=== PATIENT | male | born 1985 | race American Indian/Alaskan Native ===

== ENCOUNTER 2021-11-28 01:57 | Emergency (ER) | payer SELFPAY ==
--- NOTE | 2021-11-28 02:58 | XRay Report ---
Left foot, 3 views HISTORY: Injury COMPARISON: None FINDINGS: No acute fracture or malalignment. Mild first MTP and TMT osteoarthritis. Lisfranc interval is preser ivanna. No focal soft tissue abnormality. IMPRESSION: No acute process. Signer Name: Miki Diaz MD Signed: 11/28/2021 2:54 AM Workstation Name: [id number]
--- NOTE | 2021-11-28 03:27 | Emergency Department Report ---
ED Lower Extremity HPI - General Chief Complaint: Extremity Injury, Lower Stated Complaint: LT FOOT INJURY Source: patient Mode of arrival: Ambulatory Limitations: No Limitations - History of Present Illness Initial Comments: Patient is a 36-year-old -[place] male with past medical history of zip-jiwlhft-nkbntkrak diabetes who presents to the ED with complaint of acute onset persistent dorsal left foot pain after multiple wooden shelves dropped onto his left foot while at work about 2 hours ago. Patient states that the pain is worse with any movement and that any active range of motion makes the pain worse. Patient denies fall, dizziness, syncope, numbness and tingling or weakness of left leg, back pain, head or neck injuries, nausea and vomiting or loss of consciousness. MD Complaint: foot injury (left foot pain), other (dorsal left foot pain) -: Sudden, hour(s) (2) Injury: Foot: Left (Pain) Type of Injury: blunt Place: work Severity: severe Severity scale (0 -10): 7 Improves With: nothing Worsens With: weight bearing, movement, palpation Context: direct blow Associated Symptoms: able to partially bear weight - Related Data Previous Rx's Medication Instructions Recorded Last Taken Type Ibuprofen [Motrin] 800 mg PO Q8HR PRN #30 tablet 11/28/21 Unknown Rx Allergies Allergy/AdvReac Type Severity Reaction Status Date / Time No Known Allergies Allergy Unverified 11/28/21 02:20 ED Review of Systems ROS: Stated complaint: LT FOOT INJURY Other details as noted in HPI Constitutional: denies: chills, fever Eyes: denies: eye pain, eye discharge, vision change ENT: denies: ear pain, throat pain Respiratory: denies: cough, shortness of breath, wheezing Cardiovascular: denies: chest pain, palpitations Endocrine: no symptoms reported Gastrointestinal: denies: abdominal pain, nausea, diarrhea Genitourinary: denies: urgency, dysuria Musculoskeletal: arthralgia (Left foot pain). denies: back pain, joint swelling Skin: denies: rash, lesions Neurological: denies: headache, weakness, paresthesias Psychiatric: denies: anxiety, depression Hematological/Lymphatic: denies: easy bleeding, easy bruising ED Past Medical Hx - Past Medical History Previous Medical History?: Yes Hx Diabetes: Yes - Surgical History Past Surgical History?: No - Medications Home Medications: Home Medications Medication Instructions Recorded Confirmed Last Taken Type Ibuprofen [Motrin] 800 mg PO Q8HR PRN #30 tablet 11/28/21 Unknown Rx ED Physical Exam - General Limitations: No Limitations General appearance: alert, in no apparent distress - Head Head exam: Present: atraumatic, normocephalic, normal inspection - Eye Eye exam: Present: normal appearance, PERRL, EOMI Pupils: Present: normal accommodation - ENT ENT exam: Present: normal exam, normal orophraynx, mucous membranes moist, TM's normal bilaterally, normal external ear exam - Neck Neck exam: Present: normal inspection, full ROM - Respiratory Respiratory exam: Present: normal lung sounds bilaterally. Absent: respiratory distress, wheezes, rales, chest wall tenderness, accessory muscle use, prolonged expiratory - Cardiovascular Cardiovascular Exam: Present: regular rate, normal rhythm, normal heart sounds. Absent: systolic murmur, diastolic murmur, rubs, gallop - GI/Abdominal GI/Abdominal exam: Present: soft, normal bowel sounds. Absent: tenderness, guarding, rebound, hyperactive bowel sounds, hypoactive bowel sounds, organomegaly, bruit - Extremities Exam Extremities exam: Present: normal inspection, full ROM, tenderness (Palpable dorsal left foot tenderness with mild swelling), normal capillary refill, joint swelling. Absent: pedal edema, calf tenderness - Back Exam Back exam: Present: normal inspection, full ROM. Absent: tenderness, CVA tenderness (R), CVA tenderness (L), muscle spasm, paraspinal tenderness, vertebral tenderness - Neurological Exam Neurological exam: Present: alert, oriented X3, CN II-XII intact, normal gait, reflexes normal - Psychiatric Psychiatric exam: Present: normal affect, normal mood - Skin Skin exam: Present: warm, dry, intact, normal color. Absent: rash ED Course Vital Signs 11/28/21 02:21 Temperature 98.5 F Pulse Rate 80 Respiratory 18 Rate Blood Pressure 133/84 O2 Sat by Pulse 97 Oximetry ED Lower Extremity MDM - Radiology Data Radiology results: report reviewed, image reviewed [address] [address] XRay Report Signed Patient: WYATT ALSTON MR#: [id number] : 1985 Acct:[id number] Age/Sex: 36 / M ADM Date: 11/28/21 Loc: ED Attending Dr: Ordering Physician: IVONE WILHELM MD Date of Service: 11/28/21 Procedure(s): XR foot 3+V LT Accession Number(s): [id number] cc: IVONE WILHELM MD Fluoro Time In Minutes: Left foot, 3 views HISTORY: Injury COMPARISON: None FINDINGS: No acute fracture or malalignment. Mild first MTP and TMT osteoarthritis. Lisfranc interval is preserved. No focal soft tissue abnormality. IMPRESSION: No acute process. Signer Name: Irvin Yeung MD Signed: 11/28/2021 2:54 AM Workstation Name: [id number] Transcribed By: MAURIZIO Dictated By: IRVIN YEUNG MD Electronically Authenticated By: IRVIN YEUNG MD Signed Date/Time: 11/28/21253 DD/ 2 TD/TT: Print Cancel - Medical Decision Making This is a 36-year-old -[place] male with past medical history of qwm-tsruimc-xbvsuccyd diabetes who presents to the ED with complaint of acute onset persistent dorsal left foot pain after multiple wooden shelves dropped onto his left foot while at work about 2 hours ago. Patient states that the pain is worse with any movement and that any active range of motion makes the pain worse. In the ED, patient is alert and oriented x3 and is not in distress. Patient was treated for pain in the ED and left foot x-ray showed no acute fractures or subluxations. Patient left foot was splinted with Rylan wrap and fitted with postop shoe. Patient was discharged home on pain medications and advised to follow-up with his primary care physician in 7 to 10 days for reevaluation or return to the ED immediately if symptoms get worse. - Differential Diagnosis foot fracture; foot contusion; Foot sprain Critical care attestation.: If time is entered above; I have spent that time in minutes in the direct care of this critically ill patient, excluding procedure time. ED Disposition Clinical Impression: Contusion of left foot including toes Qualifiers: Encounter type: initial encounter Qualified Code(s): S90.32XA - Contusion of left foot, initial encounter; S90.122A - Contusion of left lesser toe(s) without damage to nail, initial encounter Sprain of left foot Qualifiers: Encounter type: initial encounter Qualified Code(s): S93.602A - Unspecified sprain of left foot, initial encounter Disposition: HOME / SELF CARE / HOMELESS Is pt being admited?: No Does the pt Need Aspirin: No Condition: Stable Instructions: Foot Contusion, Poul-iv-Qzqi, Crush Injury of the Foot, Ofun-ll-Meoa Additional Instructions: The left foot x-ray showed no acute fractures or subluxations. Therefore take medication with food, drink plenty of fluids and follow-up with your primary care physician in 7 to 10 days for reevaluation. Return to the ED immediately if symptoms get worse. Prescriptions: Ibuprofen [Motrin] 800 mg PO Q8HR PRN #30 tablet PRN Reason: Pain , Severe (7-10) Referrals: [facility] [Provider Group] - 3-5 Days Forms: Work/School Release Form(ED) Time of Disposition: 03:44 Print Language: WOLOF
[2021-11-28 05:04] VITALS: BP 110/82
== END 2021-11-28 05:13 | disposition home or self-care (01) ==
LOC: ED 01:57
DX: S93.602A Unspecified sprain of left foot, initial encounter (principal); S90.122A Contusion of left lesser toe(s) without damage to nail, initial encounter; E11.9 Type 2 diabetes mellitus without complications; X58.XXXA Exposure to other specified factors, initial encounter; Y93.89 Activity, other specified; Y92.89 Other specified places as the place of occurrence of the external cause; Y99.8 Other external cause status
CPT/HCPCS: 99284

== ENCOUNTER 2021-12-02 11:43 | Emergency (ER) | payer SELFPAY ==
[2021-12-02] MEDS ORDERED: IBUPROFEN 400 MG TAB PO ONE (12:22)
[2021-12-02] MEDS ORDERED: ACETAMINOPHEN 325 MG TAB PO ONE (12:22)
[2021-12-02] MEDS ORDERED: cephALEXin 500 MG CAP PO ONE (12:22)
--- NOTE | 2021-12-02 12:28 | Emergency Department Report ---
ED Lower Extremity HPI - General Chief Complaint: Medical Clearance Stated Complaint: FOOT INJURY Time Seen by Provider: 12/02/21 12:16 Source: patient, RN notes reviewed, old records reviewed Mode of arrival: Ambulatory Limitations: No Limitations - History of Present Illness Initial Comments: The patient was evaluated in the emergency department for symptoms described in the history of present illness. He/she was evaluated in the context of the global COVID-19 pandemic, which necessitated consideration that the patient might be at risk for infection with the virus that causes COVID-19. Institutional protocols and algorithms that pertain to the evaluation of patients at risk for COVID-19 are in a state of rapid change based on information released by regulatory bodies including the CDC and federal and state organizations. These policies and algorithms were followed during the patient's care in the emergency department. Please note that these policies, procedures and recommendations changed on a rapid basis. The patient is a 36-year-old gentleman, who was seen in this department 4 days ago, with a complaint of blunt traumatic foot injury, while sustained at work. The patient had an x-ray obtained in this emergency room, which showed no fracture or dislocation. Patient was given a work excuse for work, but he reports that he has not followed up with his Worker's Compensation physician or provider. 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 He is still having persistent left foot pain. He also endorses dorsal left-sided foot redness. He is currently wearing flip-flops/slides, and he reports he is not able to place his feet and steel toed boots. 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 Denies additional injuries and complaints Complaint: foot injury -: days(s) Injury: Foot: Left Type of Injury: blunt Place: work Improves With: rest Worsens With: movement, palpation Context: direct blow Associated Symptoms: able to partially bear weight - Related Data Previous Rx's Medication Instructions Recorded Last Taken Type Ibuprofen [Motrin] 800 mg PO Q8HR PRN #30 tablet 11/28/21 Unknown Rx Acetaminophen [Non-Aspirin Extra 500 mg PO Q6HR PRN #30 tablet 12/02/21 Unknown Rx Strength] Ibuprofen [Motrin] 600 mg PO Q8H PRN #30 tablet 12/02/21 Unknown Rx cephALEXin [Keflex] 500 mg PO Q6HR #28 capsule 12/02/21 Unknown Rx Allergies Allergy/AdvReac Type Severity Reaction Status Date / Time No Known Allergies Allergy Unverified 11/28/21 02:20 ED Review of Systems ROS: Stated complaint: FOOT INJURY Other details as noted in HPI Constitutional: denies: fever Respiratory: denies: cough Cardiovascular: denies: chest pain Musculoskeletal: arthralgia, myalgia Skin: rash ED Past Medical Hx - Past Medical History Hx Diabetes: Yes - Medications Home Medications: Home Medications Medication Instructions Recorded Confirmed Last Taken Type Ibuprofen [Motrin] 800 mg PO Q8HR PRN #30 tablet 11/28/21 Unknown Rx Acetaminophen [Non-Aspirin Extra 500 mg PO Q6HR PRN #30 tablet 12/02/21 Unknown Rx Strength] Ibuprofen [Motrin] 600 mg PO Q8H PRN #30 tablet 12/02/21 Unknown Rx cephALEXin [Keflex] 500 mg PO Q6HR #28 capsule 12/02/21 Unknown Rx ED Physical Exam - General Limitations: No Limitations General appearance: alert, in no apparent distress - Head Head exam: Present: atraumatic, normocephalic - Eye Eye exam: Present: normal appearance, EOMI. Absent: nystagmus - ENT ENT exam: Present: normal exam, normal orophraynx, mucous membranes moist, normal external ear exam - Neck Neck exam: Present: normal inspection, full ROM. Absent: tenderness, meningismus - Respiratory Respiratory exam: Present: normal lung sounds bilaterally. Absent: respiratory distress, wheezes, rales, rhonchi, stridor, decreased breath sounds - Cardiovascular Cardiovascular Exam: Present: regular rate, normal rhythm, normal heart sounds. Absent: bradycardia, tachycardia, irregular rhythm, systolic murmur, diastolic murmur, rubs, gallop - GI/Abdominal GI/Abdominal exam: Present: soft. Absent: distended, tenderness, guarding, rebound, rigid, pulsatile mass - Rectal Rectal exam: Present: deferred - Extremities Exam Extremities exam: Present: full ROM, tenderness (There is dorsal left-sided foot tenderness), other (2+ pulses noted in the bilateral and upper and lower extremities. Upper extremities nontender. Right lower extremity nontender. Left lower extremity nontender with the exception of the left dorsal foot.). Absent: normal inspection (On the dorsal aspect of the left foot, there is circumferential erythema, without pus or streaking), calf tenderness - Back Exam Back exam: Present: normal inspection. Absent: tenderness, CVA tenderness (R), CVA tenderness (L), paraspinal tenderness, vertebral tenderness - Neurological Exam Neurological exam: Present: alert, oriented X3, other (No facial droop. Tongue midline. Extraocular movements intact bilaterally. Facial sensation intact to light touch in V1, V2, V3 distribution bilaterally. 5 and a 5 strength in 4 extremities. Sensation intact to light touch in 4 extremities.). Absent: motor sensory deficit - Psychiatric Psychiatric exam: Present: anxious - Skin Skin exam: Present: warm, erythema (Left dorsal foot erythema). Absent: rash ED Course Vital Signs 12/02/21 12:01 Temperature 98.4 F Pulse Rate 81 Respiratory 18 Rate Blood Pressure 130/94 O2 Sat by Pulse 99 Oximetry ED Lower Extremity MDM - Lab Data Vital Signs 12/02/21 12:01 Temperature 98.4 F Pulse Rate 81 Respiratory 18 Rate Blood Pressure 130/94 O2 Sat by Pulse 99 Oximetry - Radiology Data Radiology results: pending, report reviewed, image reviewed [facility] [address] [place] [address] XRay Report Signed Patient: WYATT ALSTON MR#: [id number] : 1985 Acct:[id number] Age/Sex: 36 / M ADM Date: 11/28/21 Loc: ED Attending Dr: Ordering Physician: IVONE WILHELM MD Date of Service: 11/28/21 Procedure(s): XR foot 3+V LT Accession Number(s): [id number] cc: IVONE WILHELM MD Fluoro Time In Minutes: Left foot, 3 views HISTORY: Injury COMPARISON: None FINDINGS: No acute fracture or malalignment. Mild first MTP and TMT osteoarthritis. Lisfranc interval is preserved. No focal soft tissue abnormality. IMPRESSION: No acute process. Signer Name: Irvin Diaz MD Signed: 11/28/2021 2:54 AM Workstation Name: [id number] Transcribed By: JS Dictated By: IRVIN DIAZ MD Electronically Authenticated By: IRVIN DIAZ MD Signed Date/Time: 11/28/21253 DD/ 2 - Medical Decision Making Differential diagnosis, include but not limited to: Sprain, strain, work-related injury, cellulitis Assessment and plan: 36-year-old gentleman presenting for repeat evaluation, after blunt trauma which was sustained at work 4 days ago, had x-ray here which showed no fracture or dislocation, now presenting with left dorsal foot cellulitis, but otherwise neurovascular intact. Weightbearing as tolerated, discharged with a cane and hard soled shoe. Alternate Tylenol, Motrin for pain, and start Keflex for left dorsal foot cellulitis. 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 The patient does not appear to have an emergent medical condition present at this time. I will also provide this patient with 1 week of light duty/no heavy lifting. However, he will need to follow-up with a primary care doctor, or Worker's Compensation physician for clearance to return to full duty Critical care attestation.: If time is entered above; I have spent that time in minutes in the direct care of this critically ill patient, excluding procedure time. ED Disposition Clinical Impression: Left foot pain, Cellulitis of left foot Disposition: 01 HOME / SELF CARE / HOMELESS Is pt being admited?: No Does the pt Need Aspirin: No Condition: Good Instructions: Cellulitis, Adult Additional Instructions: Alternate ice packs and heat packs as needed for physical pain. Take the prescribed medications as directed. Do not wear flip-flops or slides, wear hard soled shoe, use a cane for ambulation, and ambulate as tolerated. Recommend that patient wear a hard soled shoe on left foot, or athletic shoes with good arch supports, which are loosely fitted. 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 The patient should clarify specifically whether or not his employer works with the Worker's Compensation physician for work-related injury. We do recommend follow-up with an outpatient physician or Worker's Compensation physician for repeat checkup and evaluation in the next 5 to 7 days. For the patient's convenience, local primary care doctors have been listed that he may follow-up with. 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 He is not cleared to resume work in the capacity where he would be on his left foot or leg. He may therefore participates in clerical tasks, or administrative tasks. Referrals: SAUMYA MONTANEZ MD [Staff Physician] - 3-5 Days [facility] [Provider Group] - 3-5 Days [facility] [Outside] - 3-5 Days Forms: Work/School Release Form(ED)
[2021-12-02 13:06] VITALS: BP 133/100
== END 2021-12-02 13:06 | disposition home or self-care (01) ==
LOC: ED 11:43
DX: M79.672 Pain in left foot (principal); L03.116 Cellulitis of left lower limb; E11.9 Type 2 diabetes mellitus without complications
CPT/HCPCS: 99282